=== PATIENT | female | born 1935 | race American Indian/Alaskan Native ===

== ENCOUNTER 2017-04-26 13:07 | Emergency (ER) | payer MEDICARE ==
[2017-04-26 13:08] VITALS: PULSE 86
[2017-04-26 13:21] VITALS: BMI 29.0
--- NOTE | 2017-04-26 13:27 | ED PDOC ---
Arrival/HPI - General Chief Complaint: Dizziness/Lightheaded Time Seen by Provider: 04/26/17 13:12 Historian: Patient - History of Present Illness Narrative History of Present Illness (Text): 04/26/17 13:27 An 81 year old female, whose past medical history includes CHF, diabetes and hypertension, presents to the emergency department complaining of dizziness, lightheadedness, generalized weakness and shortness of breath. Patient reports she was bending this morning to sort some laundry and felt dizzy, weak, lightheaded, shortness of breath when she stood up. Patient also reports fullness in epigastric abdominal region. Reports she felt fine when she got up. Denies drinking or smoking. Denies any nausea, vomiting, cough, congestion, fever or any other complaints at this time. Symptom Onset: Sudden Symptom Course: Improving Activities at Onset: Rest Context: Home Associated Symptoms (Text): 04/26/17 13:40 Normal cardiac catheterization in May. Past Medical History - Provider Review Nursing Documentation Reviewed: Yes - Reproductive Currently : No - Cardiac Hx Cardiac Disorders: Yes Hx Atrial Fibrillation: Yes Hx Hypertension: Yes - Pulmonary Hx Respiratory Disorders: No - Neurological Hx Neurological Disorder: No - HEENT Hx HEENT Disorder: (Wears glasses) - Renal Hx Renal Disorder: No - Endocrine/Metabolic Hx Endocrine Disorders: Yes Hx Diabetes Mellitus Type 2: Yes - Hematological/Oncological Hx Blood Transfusions: No Hx Blood Transfusion Reaction: No - Integumentary Hx Dermatological Disorder: No - Musculoskeletal/Rheumatological Hx Musculoskeletal Disorders: No Hx Falls: No - Gastrointestinal Hx Gastrointestinal Disorders: No Other/Comment: EGD - Genitourinary/Gynecological Hx Genitourinary Disorders: No - Psychiatric Hx Psychophysiologic Disorder: No Hx Substance Use: No - Surgical History Hx Hysterectomy: Yes - Anesthesia Hx Anesthesia Reactions: No Hx Malignant Hyperthermia: No - Suicidal Assessment Feels Threatened In Home Enviroment: No Family/Social History - Physician Review Nursing Documentation Reviewed: Yes Family/Social History: No Known Family HX Smoking Status: Never Smoked Hx Alcohol Use: No Hx Substance Use: No Allergies/Home Meds Allergies/Adverse Reactions: Allergies No Known Allergies Allergy (Verified 05/19/16 09:06) Review of Systems - Physician Review All systems were reviewed & negative as marked: Yes - Review of Systems Constitutional: Other (weakness and lightheadedness). absent: Fatigue, Fevers ENT: absent: Sinus Congestion Respiratory: SOB. absent: Cough Cardiovascular: absent: Chest Pain, Palpitations, Syncope Gastrointestinal: Other ("fullness" in epigastric ). absent: Nausea, Vomiting Neurological: Dizziness. absent: Headache, Focal Weakness, Gait Changes Physical Exam Vital Signs Reviewed: Yes Vital Signs Temp Pulse Resp BP Pulse Ox 04/26/17 14:46 98.0 F 53 L 16 172/97 H 97 04/26/17 13:10 98.1 F 68 24 157/113 H 97 Temperature: Afebrile Blood Pressure: Hypertensive Pulse: Regular Respiratory Rate: Normal Appearance: Positive for: Well-Appearing, Non-Toxic, Comfortable Pain Distress: None Mental Status: Positive for: Alert and Oriented X 3 - Systems Exam Head: Present: Atraumatic, Normocephalic Pupils: Present: PERRL Extroacular Muscles: Present: EOMI Conjunctiva: Present: Normal Ears: Present: NORMAL TM, Normal Canal. No: Erythema Mouth: Present: Moist Mucous Membranes Pharnyx: No: ERYTHEMA, EXUDATE, TONSILS ENLARGED Neck: Present: Normal Range of Motion Respiratory/Chest: Present: Clear to Auscultation, Good Air Exchange. No: Respiratory Distress, Accessory Muscle Use Cardiovascular: Present: Regular Rate and Rhythm, Normal S1, S2. No: Murmurs Abdomen: Present: Normal Bowel Sounds. No: Tenderness, Distention, Peritoneal Signs, Rebound, Guarding Back: Present: Normal Inspection Upper Extremity: Present: Normal Inspection. No: Cyanosis, Edema Lower Extremity: Present: Normal Inspection. No: Edema Neurological: Present: GCS=15, CN II-XII Intact, Speech Normal, Motor Func Grossly Intact, Normal Sensory Function, Normal Cerebellar Funct Skin: Present: Warm, Dry, Normal Color. No: Rashes Psychiatric: Present: Alert, Oriented x 3, Normal Insight, Normal Concentration Medical Decision Making ED Course and Treatment: 04/26/17 13:25 Impression: An 81 year old female with dizziness, lightheadedness, weakness and shortness of breath. Plan: -- EKG -- CT head -- Chest xray -- labs -- Urinalysis -- Reassess and disposition Prior Visits: Notes and results from previous visits were reviewed. Patient was last seen in the emergency department on 05/19/16 for evaluation of cough, wheezing and epigastric abdominal pain. Progress Notes: 12/11/17 13:41 EKG is pacing rate approximately 65. 04/26/17 14:24 CT HEAD WITHOUT CONTRAST Creator : Rony Church MD FINDINGS: HEMORRHAGE: No intracranial hemorrhage. BRAIN: No mass effect or edema. There is a 2.8 cm area of well defined encephalomalacia in the right frontal lobe. This is consistent with an old infarct VENTRICLES: Unremarkable. No hydrocephalus. CALVARIUM: Unremarkable. PARANASAL SINUSES: Unremarkable as visualized. No significant inflammatory changes. MASTOID AIR CELLS: Unremarkable as visualized. No inflammatory changes. IMPRESSION: There is a 2.8 cm area of well defined encephalomalacia in the right frontal lobe. This is consistent with an old infarct 04/26/17 14:33 chest xray: Creator : Rony Church MD FINDINGS: LUNGS: No active pulmonary disease. PLEURA: No significant pleural effusion identified, no pneumothorax apparent. CARDIOVASCULAR: Severe cardiomegaly. Dual lead pacemaker OSSEOUS STRUCTURES: No significant abnormalities. VISUALIZED UPPER ABDOMEN: Normal. IMPRESSION: Severe cardiomegaly. No acute findings. 04/26/17 15:37 Patient reports she is feeling better and wants to go home. She has no dizziness. The fullness has resolved. She will be discharged to follow up with her PMD. Follow-up in the ER as needed. - Lab Interpretations Lab Results: 04/26/17 13:30 04/26/17 13:30 Lab Results 04/26/17 13:30: Sodium 140, Potassium 3.5 L, Chloride 106, Carbon Dioxide 25, Anion Gap 13, BUN 20, Creatinine 0.7, Est GFR ( Amer) > 60, Est GFR (Non- Af Amer) > 60, Random Glucose 171 H, Calcium 9.1, Phosphorus 2.9, Magnesium 2.1 , Total Bilirubin 1.1, AST 38 H, ALT 28, Alkaline Phosphatase 78, Lactate Dehydrogenase 635, Total Creatine Kinase 85, Troponin I 0.02 D, Total Protein 7.6, Albumin 3.9, Globulin 3.6, Albumin/Globulin Ratio 1.1, Lipase 57 04/26/17 13:30: PT 35.9 H, INR 3.22 H, APTT 43.8 H 04/26/17 13:30: WBC 5.5 D, RBC 4.38, Hgb 12.1, Hct 37.5, MCV 85.6, MCH 27.6, MCHC 32.3, RDW 16.8 H, Plt Count 123, MPV 11.0, Gran % 71.3 H, Lymph % (Auto) 21.7 L, [place] % (Auto) 6.2 H, Eos % (Auto) 0.6 L, Baso % (Auto) 0.2, Gran # 3.89 , Lymph # 1.2, [place] # 0.3, Eos # 0.0, Baso # 0.01 - RAD Interpretation Radiology Orders: 04/26/17 13:36 HEAD W/O CONTRAST [CT] Stat 04/26/17 13:37 CHEST PORTABLE [RAD] Stat Chest 1 view shows severe cardiomegaly and a pacemaker. No infiltrate or effusion. CT scan of the head shows an old infarct. No new findings. [employer] Sales Representative: Radiologist - Medication Orders Current Medication Orders: Discontinued Medications Pantoprazole Sodium (Protonix Inj) 40 mg IVP ONCE STA Stop: 04/26/17 14:45 Last Admin: 04/26/17 14:59 Dose: 40 mg IVP Administration Document 04/26/17 14:59 YP (Rec: 04/26/17 14:59 YP [id number]) Charges for Administration # of IVP Administrations 1 - Scribe Statement The provider has reviewed the documentation as recorded by the Augusta Shine Provider Scribe Attestation: All medical record entries made by the Scribchrystal were at my direction and personally dictated by me. I have reviewed the chart and agree that the record accurately reflects my personal performance of the history, physical exam, medical decision making, and the department course for this patient. I have also personally directed, reviewed, and agree with the discharge instructions and disposition. Disposition/Present on Arrival - Present on Arrival Any Indicators Present on Arrival: No History of DVT/PE: No History of Uncontrolled Diabetes: No Urinary Catheter: No History of Decub. Ulcer: No History Surgical Site Infection Following: None - Disposition Have Diagnosis and Disposition been Completed?: Yes Diagnosis: Dizziness, Dyspnea, Epigastric pain Disposition: HOME/ ROUTINE Disposition Time: 15:38 Patient Plan: Discharge Condition: IMPROVED Discharge Instructions (ExitCare): Dizziness (ED), Epigastric Pain (ED), Dyspnea (ED) Additional Instructions: Follow-up with PMD. Follow up in ER as needed. Referrals: Adriano Foster MD [Primary Care Provider] - Follow up with primary Forms: [employer] (Bulgarian)
[2017-04-26 13:59] LABS: BASO # 0.01 K/mm3 (0.0-2.0); BASO % 0.2 % (0.0-3.0); EOS % 0.6 % (1.5-5.0); GRAN # 3.89 (1.4-6.5); GRAN % 71.3 % (50.0-68.0); HEMATOCRIT 37.5 % (36.0-48.0); LYMPH # 1.2 (1.2-3.4); LYMPH % 21.7 % (22.0-35.0); MEAN CELL VOLUME 85.6 fl (80.0-105.0); MEAN CORPUSCULAR HEMOGLOBIN 27.6 pg (25.0-35.0); MEAN CORPUSCULAR HGB CONC 32.3 g/dl (31.0-37.0); MONO # 0.3 (0.1-0.6); MONO % 6.2 % (1.0-6.0); RED CELL DISTRIBUTION WIDTH 16.8 % (11.5-14.5); WHITE BLOOD COUNT 5.5 10^3/ul (4.5-11.0)
[2017-04-26 14:04] LABS: INR 3.22 (0.93-1.08)
[2017-04-26 14:05] LABS: PARTIAL THROMBOPLASTIN TIME 43.8 Seconds (25.1-36.5)
[2017-04-26 14:07] LABS: ALB/GLOB RATIO 1.1 (1.1-1.8); ALKALINE PHOSPHATASE 78 U/L (38-126); ALT/SGPT 28 U/L (7-56); AST/SGOT 38 U/L (14-36); BILIRUBIN,TOTAL 1.1 mg/dL (0.2-1.3); BLOOD UREA NITROGEN 20 mg/dL (7-21); CALCIUM 9.1 mg/dL (8.4-10.5); CARBON DIOXIDE 25 mmol/L (21-33); CHLORIDE 106 mmol/L (98-107); GFR AFRICAN-AMERICAN > 60; GLUCOSE,RANDOM 171 mg/dL (70-110); LIPASE 57 U/L (23-300); MAGNESIUM 2.1 mg/dL (1.7-2.2); PHOSPHOROUS 2.9 mg/dL (2.5-4.5); POTASSIUM 3.5 mmol/L (3.6-5.0); SODIUM 140 mmol/L (132-148); TOTAL PROTEIN 7.6 g/dL (5.8-8.3)
[2017-04-26 14:14] LABS: TROPONIN I 0.02 ng/mL
--- NOTE | 2017-04-26 14:22 | CT ---
PROCEDURE: CT HEAD WITHOUT CONTRAST. HISTORY: dizzy COMPARISON: None available. TECHNIQUE: Axial computed tomography images were obtained through the head/brain without intravenous contrast. Radiation dose: Total exam DLP = 1162 mGy-cm. This CT exam was performed using one or more of the following dose reduction techniques: Automated exposure control, adjustment of the mA and/or kV according to patient size, and/or use of iterative reconstruction technique. FINDINGS: HEMORRHAGE: No intracranial hemorrhage. BRAIN: No mass effect or edema. There is a 2.8 cm area of well defined encephalomalacia in the right frontal lobe. This is consistent with an old infarct VENTRICLES: Unremarkable. No hydrocephalus. CALVARIUM: Unremarkable. PARANASAL SINUSES: Unremarkable as visualized. No significant inflammatory changes. MASTOID AIR CELLS: Unremarkable as visualized. No inflammatory changes. OTHER FINDINGS: None. IMPRESSION: There is a 2.8 cm area of well defined encephalomalacia in the right frontal lobe. This is consistent with an old infarct
--- NOTE | 2017-04-26 14:31 | RAD ---
HISTORY: dizzy COMPARISON: 05/26/2016 FINDINGS: LUNGS: No active pulmonary disease. PLEURA: No significant pleural effusion identified, no pneumothorax apparent. CARDIOVASCULAR: Severe cardiomegaly. Dual lead pacemaker OSSEOUS STRUCTURES: No significant abnormalities. VISUALIZED UPPER ABDOMEN: Normal. OTHER FINDINGS: None. IMPRESSION: Severe cardiomegaly. No acute findings
[2017-04-26 14:47] VITALS: TEMP 98
[2017-04-26 15:52] VITALS: RESP 18; O2SAT 98
[2017-04-26 16:52] VITALS: BP 169/71; PULSE 76
--- NOTE | 2017-04-26 23:58 | CARD ---
APPROVED REPORT EKG Measurement Heart [id number] <Conclusion> Demand pacemaker, interpretation is based on intrinsic rhythm Atrial fibrillation with premature ventricular or aberrantly conducted complexes Left axis deviation Moderate voltage criteria for LVH, may be normal variant Anteroseptal infarct, age undetermined ST & T wave abnormality, consider lateral ischemia or digitalis effect Abnormal ECG
== END 2017-04-26 17:07 | disposition home or self-care (01) ==
LOC: ED 13:07
DX: R10.13 Epigastric pain (principal); R42 Dizziness and giddiness; R06.00 Dyspnea, unspecified; E11.9 Type 2 diabetes mellitus without complications; I48.91 Unspecified atrial fibrillation; I50.9 Heart failure, unspecified; I10 Essential (primary) hypertension
CPT/HCPCS: 70450; 71010; 80053; 82550; 83615; 83690; 83735; 84100; 84484; 85025; 85610; 85730; 93005; 96374; 99285; C9113

== ENCOUNTER 2017-05-18 10:27 | Emergency (ER) | payer MEDICARE ==
[2017-05-18 10:27] VITALS: PULSE 86
[2017-05-18 10:34] VITALS: BMI 26.7
[2017-05-18 10:43] VITALS: RESP 18
--- NOTE | 2017-05-18 11:23 | ED PDOC ---
Arrival/HPI - General Chief Complaint: Dizziness/Lightheaded Time Seen by Provider: 05/18/17 10:37 Historian: Patient, Family (son) - History of Present Illness Narrative History of Present Illness (Text): 05/18/17 12:37 pt p/w + 1-2 days onset of dizziness/room spinning and heaviness feeling in her head; pt states her dizziness is worse when she changes position/stands too long ; pt states no acute headaches, no vision changes, no neck pain, no fever/chills /sweats, no cp/sob/palpitations, no abd pain, + nausea, no vomiting, no numbness /tingling, no slurr speech, no facial changes, no focal weakness; pt denied fall /trauma/sick contact, no travel; pt was evaluated in the ED in mid April for similiar symptoms and was treated in the ED and pt was discharged home and instructed to f/u with PCP as outpatient; pt states she couldnt get appointment until later this month; pt denied other complaints; pt is here for further eval. 05/18/17 12:43 pt is right hand dominate Time/Duration: < week Symptom Onset: Sudden Symptom Course: Intermittent Severity Level: Severe Context: Home Past Medical History - Provider Review Nursing Documentation Reviewed: Yes - Travel History Have you recently traveled outside [place] w/in the past 3 mons?: No - Past History Past History: No Previous - Cardiac Hx Cardiac Disorders: Yes Hx Atrial Fibrillation: Yes Hx Hypertension: Yes - Pulmonary Hx Respiratory Disorders: No - Neurological Hx Neurological Disorder: No - HEENT Hx HEENT Disorder: (Wears glasses) - Renal Hx Renal Disorder: No - Endocrine/Metabolic Hx Endocrine Disorders: Yes Hx Diabetes Mellitus Type 2: Yes - Hematological/Oncological Hx Blood Transfusions: No Hx Blood Transfusion Reaction: No - Integumentary Hx Dermatological Disorder: No - Musculoskeletal/Rheumatological Hx Musculoskeletal Disorders: No Hx Falls: No - Gastrointestinal Hx Gastrointestinal Disorders: No Other/Comment: EGD - Genitourinary/Gynecological Hx Genitourinary Disorders: No - Psychiatric Hx Psychophysiologic Disorder: No Hx Substance Use: No - Surgical History Hx Hysterectomy: Yes - Anesthesia Hx Anesthesia Reactions: No Hx Malignant Hyperthermia: No - Suicidal Assessment Feels Threatened In Home Enviroment: No Family/Social History - Physician Review Nursing Documentation Reviewed: Yes Family/Social History: No Known Family HX Smoking Status: Never Smoked Hx Alcohol Use: No Hx Substance Use: No Allergies/Home Meds Allergies/Adverse Reactions: Allergies No Known Allergies Allergy (Verified 05/19/16 09:06) Home Medications: Home Meds Medication Instructions Recorded Confirmed Losartan [Cozaar] 50 mg PO DAILY 05/18/17 05/18/17 Metoprolol Succinate [Toprol XL] 50 mg PO DAILY 05/18/17 05/18/17 Warfarin [Coumadin] 6 mg PO 1800 05/18/17 05/18/17 Review of Systems - Review of Systems Constitutional: Normal Eyes: Normal. absent: Vision Changes, Eye Pain ENT: Normal Respiratory: Normal Cardiovascular: Normal Gastrointestinal: Normal Genitourinary Female: Normal Musculoskeletal: Normal Skin: Normal Neurological: Normal, Dizziness. absent: Headache, Speech Changes, Facial Droop Endocrine: Normal Hemo/Lymphatic: Normal Psychiatric: Normal Physical Exam Vital Signs Reviewed: Yes (elevated BP) Vital Signs Temp Pulse Resp BP Pulse Ox 05/18/17 13:15 73 18 155/77 H 96 05/18/17 11:50 71 18 172/98 H 97 05/18/17 11:35 61 18 176/96 H 98 05/18/17 11:14 61 18 174/84 H 98 05/18/17 10:42 97.8 F 65 18 189/93 H 98 Temperature: Afebrile Blood Pressure: Hypertensive Pulse: Regular Respiratory Rate: Normal Appearance: Positive for: Well-Appearing, Non-Toxic, Other (slightly uncomfortable, resting in bed, alert/awake, GCS = 15, oriented x 3, NAD) Pain Distress: None Mental Status: Positive for: Alert and Oriented X 3 - Systems Exam Head: Present: Atraumatic, Normocephalic, Other (mild bi-temporal wasting) Pupils: Present: PERRL, Other (no nystagmus, no photophobia, sclera anicteric, visual field intact b/l) Extroacular Muscles: Present: EOMI Conjunctiva: Present: Normal Ears: Present: Normal Mouth: Present: Moist Mucous Membranes, Other (fair dentitions, no drooling/ stridor, no exudate/lesions) Pharnyx: Present: Normal. No: ERYTHEMA, EXUDATE Nose (External): Present: Atraumatic Nose (Internal): Present: Normal Inspection Neck: Present: Normal Range of Motion, Trachea Midline. No: MIDLINE TENDERNESS Respiratory/Chest: Present: Clear to Auscultation, Good Air Exchange, Other ( CTA b/l, no w/r/r). No: Respiratory Distress, Accessory Muscle Use Cardiovascular: Present: Regular Rate and Rhythm, Normal S1, S2, Other (no regurg). No: Murmurs Abdomen: Present: Normal Bowel Sounds, Other (well nourished female, no focal tenderness, no masses/rebound/guarding/rigidity; no canales's sign, no mcburney' s point tenderness). No: Tenderness, Distention, Peritoneal Signs Back: Present: Normal Inspection. No: Midline Tenderness Upper Extremity: Present: Normal Inspection, Normal ROM, NORMAL PULSES, Neurovascularly Intact, Capillary Refill < 2s, Other (strength 5/5 grossly intact in all limbs, neurovasc intact b/l). No: Cyanosis, Edema Lower Extremity: Present: Normal Inspection, NORMAL PULSES, Normal ROM, Neurovascularly Intact, Capillary Refill < 2 s, Other (strength 5/5 grossly intact in all limbs, neurovasc intact b/l). No: Edema Neurological: Present: GCS=15, CN II-XII Intact, Speech Normal, Motor Func Grossly Intact, Normal Sensory Function, Normal Cerebellar Funct, Other (NIH stroke scale ~ 0; no slurr speech, oriented x 3, no facial changes noted) Skin: Present: Warm, Dry, Normal Color, Other (cap refill < 1s, no ulcerations, no petechiae). No: Rashes Psychiatric: Present: Alert, Oriented x 3, Normal Insight, Normal Concentration Medical Decision Making ED Course and Treatment: 05/18/17 11:20 Impression: dizziness/atrumatic, r/o cva, r/o electrolyte changes, r/o dehydration i have consider all the differential diagnosis regarding pt's chief medical complaints/clinical findings, including but are not limited to: dizziness/ atrumatic, r/o cva, r/o electrolyte changes, r/o dehydration A/P: dizziness/atrumatic, weakness - labs - ct - xray - observe - supportive care 05/18/17 12:52 05/18/17 12:58 05/18/17 15:19 pt felt improved, pt states no more dizziness pt is hungry pt tolerated po well 05/18/17 15:58 pt ambulated in the ED without any difficulties pt remained comfortable and not in any distress pt states no dizziness/lightheadedness pt tolerated 2 meals in the ED pt's vital signs are much improved pt is made aware of pt's medical results pt is encouraged fluids pt is educated on symptoms of stroke and to return to ED immediately if said symptoms occurrs (pt expressed understanding) pt will f/u as directed pt will be discharged home 05/18/17 16:01 Re-evaluation Time: 15:23 Reassessment Condition: Improved - Lab Interpretations Lab Results: 05/18/17 11:10 05/18/17 11:10 Lab Results 05/18/17 13:30: Urine Color Yellow, Urine Appearance Clear, Urine pH 6.5, Ur Specific [place] 1.020, Urine Protein 100 H, Urine Glucose (UA) Negative, Urine Ketones Negative, Urine Blood Small H, Urine Nitrate Negative, Urine Bilirubin Negative, Urine Urobilinogen 1.0 H, Ur Leukocyte Esterase Negative, Urine RBC 0 - 2, Urine WBC 0 - 2, Ur Epithelial Cells 1 - 3, Urine Bacteria Few 05/18/17 11:10: PT 26.7 H, INR 2.38 H, APTT 38.8 H 05/18/17 11:10: WBC 5.0, RBC 4.47, Hgb 12.4, Hct 38.4, MCV 85.9, MCH 27.7, MCHC 32.3, RDW 16.8 H, Plt Count 126, MPV 10.7, Gran % 67.6, Lymph % (Auto) 23.8, [place] % (Auto) 7.2 H, Eos % (Auto) 1.2 L, Baso % (Auto) 0.2, Gran # 3.38, Lymph # 1.2, [place] # 0.4, Eos # 0.1, Baso # 0.01 05/18/17 11:10: Sodium 144, Potassium 3.8, Chloride 107, Carbon Dioxide 26, Anion Gap 15, BUN 16, Creatinine 0.7, Est GFR ( Amer) > 60, Est GFR (Non- Af Amer) > 60, Random Glucose 119 H, Calcium 9.2, Total Bilirubin 1.3, AST 37 H , ALT 33, Alkaline Phosphatase 87, Troponin I 0.02, Total Protein 7.5, Albumin 4.0, Globulin 3.5, Albumin/Globulin Ratio 1.2 05/18/17 10:56: POC Glucose (mg/dL) 105 therapeutic INR level I have reviewed the lab results: Yes Interpretation: All labs normal - RAD Interpretation Radiology Orders: 05/18/17 14:13 Brain [HEAD W/O CONTRAST] [CT] Stat PROCEDURE: CT HEAD WITHOUT CONTRAST. HISTORY: Dizziness, r/o cva COMPARISON: 04/26/2017. TECHNIQUE: Axial computed tomography images were obtained through the head/brain without intravenous contrast. Radiation dose: Total exam DLP = 802.35 mGy-cm. This CT exam was performed using one or more of the following dose reduction techniques: Automated exposure control, adjustment of the mA and/or kV according to patient size, and/or use of iterative reconstruction technique. FINDINGS: HEMORRHAGE: No intracranial hemorrhage. BRAIN: There is redemonstration of cystic encephalomalacia in the right frontal lobe. There is no mass, mass effect or abnormal extra-axial fluid collection. There are mild chronic microangiopathic changes. VENTRICLES: There is mild age-related global parenchymal volume loss and proportionate enlargement of the ventricles and cortical sulci. CALVARIUM: The skull base and calvarium are normal. PARANASAL SINUSES: Predominantly clear. MASTOID AIR CELLS: Predominantly clear. OTHER FINDINGS: None. IMPRESSION: No acute intracranial abnormality. 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 Mild chronic microangiopathic changes and mild age-related global parenchymal volume loss. Senior Web Developer: Radiologist - EKG Interpretation EKG Interpretation (Text): 05/18/17 12:53 demand pacemaker rhythm at 60 bpm, LAD, + ectopy, inverted T in leads L, no st changes, ABNL EKG; unchanged compare with old ekg 04/201705/18/17 12:55 Interpreted by ED Physician: Yes Type: 12 lead EKG Comparison: Similar to previous EKG - Medication Orders Current Medication Orders: Discontinued Medications Hydralazine HCl (Apresoline) 10 mg IVP ONCE ONE Stop: 05/18/17 11:20 Last Admin: 05/18/17 11:35 Dose: 10 mg IVP Administration Document 05/18/17 11:35 [place] (Rec: 05/18/17 11:38 [place] [facility] [id number]) Charges for Administration # of IVP Administrations 1 JUL Pulse and Blood Pressure Document 05/18/17 11:35 LA (Rec: 05/18/17 11:38 [place] [facility] [id number]) Pulse Pulse Rate (60-90) 60 Blood Pressure Blood Pressure (100/60-150/90) 176/96 Meclizine HCl (Antivert) 50 mg PO STAT STA Stop: 05/18/17 11:19 Last Admin: 05/18/17 11:35 Dose: 50 mg Metoclopramide HCl (Reglan) 10 mg IVP STAT STA Stop: 05/18/17 11:20 Last Admin: 05/18/17 11:35 Dose: 10 mg IVP Administration Document 05/18/17 11:35 LA (Rec: 05/18/17 11:35 [id number]) Charges for Administration # of IVP Administrations 1 Disposition/Present on Arrival - Present on Arrival Any Indicators Present on Arrival: No History of DVT/PE: No History of Uncontrolled Diabetes: No Urinary Catheter: No History of Decub. Ulcer: No History Surgical Site Infection Following: None - Disposition Have Diagnosis and Disposition been Completed?: Yes Diagnosis: Dizziness, Vertigo Disposition: HOME/ ROUTINE Disposition Time: 15:24 Patient Plan: Discharge Patient Problems: Current Active Problems Problem Status Onset Dizziness Acute Vertigo Acute Condition: STABLE Discharge Instructions (ExitCare): Vertigo (ED), Dizziness (ED) Print Language: GRENADIAN Additional Instructions: Make sure to see your doctor in 1-2 days DRINK PLENTY OF FLUIDS take your medications as prescribed RETURN TO ED IF worse pain, cant breath, persistent vomiting, high fever >101- 102 for hours, altered behavior, unable to urinate, heavy/persistent bleeding, passing out, chest pain, or other medical emergencies Prescriptions: Meclizine [Meclizine*] 25 mg PO Q6 #30 tab Metoclopramide [Reglan] 10 mg PO TID #20 tab Referrals: Goldy Tillman MD [Staff Provider] - Follow up with primary Eloy Allen MD [Staff Provider] - Follow up with primary Forms: [employer] (Tuvaluan)
[2017-05-18 11:43] LABS: BASO # 0.01 K/mm3 (0.0-2.0); BASO % 0.2 % (0.0-3.0); EOS # 0.1 (0.0-0.7); EOS % 1.2 % (1.5-5.0); GRAN # 3.38 (1.4-6.5); GRAN % 67.6 % (50.0-68.0); HEMOGLOBIN 12.4 g/dL (12.0-16.0); LYMPH # 1.2 (1.2-3.4); LYMPH % 23.8 % (22.0-35.0); MEAN CELL VOLUME 85.9 fl (80.0-105.0); MEAN CORPUSCULAR HEMOGLOBIN 27.7 pg (25.0-35.0); MEAN CORPUSCULAR HGB CONC 32.3 g/dl (31.0-37.0); MEAN PLATELET VOLUME 10.7 fl (7.0-11.0); MONO # 0.4 (0.1-0.6); MONO % 7.2 % (1.0-6.0); RBC 4.47 10^6/uL (3.5-6.1); RED CELL DISTRIBUTION WIDTH 16.8 % (11.5-14.5)
[2017-05-18 11:54] LABS: ALB/GLOB RATIO 1.2 (1.1-1.8); ALT/SGPT 33 U/L (7-56); AST/SGOT 37 U/L (14-36); BLOOD UREA NITROGEN 16 mg/dL (7-21); CALCIUM 9.2 mg/dL (8.4-10.5); GFR AFRICAN-AMERICAN > 60; GFR NON-AFRICAN AMERICAN > 60; INR 2.38 (0.93-1.08); PARTIAL THROMBOPLASTIN TIME 38.8 Seconds (25.1-36.5); PROTHROMBIN TIME 26.7 SECONDS (9.4-12.5)
[2017-05-18 12:06] LABS: TROPONIN I 0.02 ng/mL
[2017-05-18 13:52] LABS: PH,URINE 6.5 (4.7-8.0); URINE BILIRUBIN NEGATIVE (NEGATIVE); URINE BLOOD SMALL (NEGATIVE); URINE GLUCOSE (UA) NEGATIVE (NEGATIVE); URINE LEUKOCYTE ESTERASE NEGATIVE Leu/uL (NEGATIVE); URINE NITRATE NEGATIVE (NEGATIVE); URINE PROTEIN 100 mg/dL (<30 mg/dL)
[2017-05-18 13:55] LABS: URINE APPEARANCE CLEAR (CLEAR); URINE COLOR YELLOW (YELLOW)
[2017-05-18 14:20] LABS: URINE BACTERIA FEW (NEG); URINE RBC 0 - 2 /hpf (0-2); URINE WBC 0 - 2 /hpf (0-6)
--- NOTE | 2017-05-18 14:47 | CT ---
PROCEDURE: CT HEAD WITHOUT CONTRAST. HISTORY: Dizziness, r/o cva COMPARISON: 04/26/2017. TECHNIQUE: Axial computed tomography images were obtained through the head/brain without intravenous contrast. Radiation dose: Total exam DLP = 802.35 mGy-cm. This CT exam was performed using one or more of the following dose reduction techniques: Automated exposure control, adjustment of the mA and/or kV according to patient size, and/or use of iterative reconstruction technique. FINDINGS: HEMORRHAGE: No intracranial hemorrhage. BRAIN: There is redemonstration of cystic encephalomalacia in the right frontal lobe. There is no mass, mass effect or abnormal extra-axial fluid collection. There are mild chronic microangiopathic changes. VENTRICLES: There is mild age-related global parenchymal volume loss and proportionate enlargement of the ventricles and cortical sulci. CALVARIUM: The skull base and calvarium are normal. PARANASAL SINUSES: Predominantly clear. MASTOID AIR CELLS: Predominantly clear. OTHER FINDINGS: None. IMPRESSION: No acute intracranial abnormality. 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 Mild chronic microangiopathic changes and mild age-related global parenchymal volume loss.
[2017-05-18 15:58] VITALS: BP 153/73; PULSE 79; TEMP 97.9; O2SAT 98
--- NOTE | 2017-05-18 17:39 | CARD ---
APPROVED REPORT EKG Measurement Heart [id number] <Conclusion> Demand pacemaker, interpretation is based on intrinsic rhythm Atrial fibrillation with premature ventricular or aberrantly conducted complexes Incomplete right bundle branch block Left anterior fascicular block Moderate voltage criteria for LVH, may be normal variant Septal infarct, age undetermined Possible Lateral infarct, age undetermined Abnormal ECG
== END 2017-05-18 16:00 | disposition home or self-care (01) ==
LOC: ED 10:27
DX: R42 Dizziness and giddiness (principal); E11.9 Type 2 diabetes mellitus without complications; I10 Essential (primary) hypertension
CPT/HCPCS: 70450; 80053; 81001; 82948; 84484; 85025; 85610; 85730; 93005; 96374; 96375; 99285; J0360; J2765